=== PATIENT | male | born 1980 | race Caucasian/White ===

== ENCOUNTER 2017-04-23 05:21 | Inpatient (IN) | payer OTHER ==
[2017-04-23] MEDS ORDERED: LACTATED RINGER'S 1,000 ML IV* ×2 (06:00)
[2017-04-23] MEDS ORDERED: LIDOCAINE 2% (SDV) 5 ML INJ (07:00)
[2017-04-23] MEDS ORDERED: FENTAnyl 50 MCG/ML VIAL (07:07)
[2017-04-23] MEDS ORDERED: HYDROmorphONE 2 MG/ML SYG (07:11)
[2017-04-23] MEDS: BUPIVACAINE 0.25% (MPF) 30 ML INJ (08:40)
[2017-04-23] MEDS: GELATIN SIZE 100 SPONGE (08:41)
[2017-04-23] MEDS: THROMBIN 5000 UNIT VIAL (08:41)
[2017-04-23] MEDS: POLYMYXIN/BACITRACIN 1L IRRIG (08:41)
[2017-04-23] MEDS ORDERED: SUGAMMADEX SODIUM 200 MG/2 ML VIAL IV (08:42)
[2017-04-23] MEDS ORDERED: DEXAMETHASONE 4 MG/ML 1 ML INJ (09:16)
[2017-04-23] MEDS ORDERED: PROPOFOL 20 ML (09:16)
[2017-04-23] MEDS ORDERED: ROCURONIUM 50 MG INJ (09:16)
[2017-04-23] MEDS ORDERED: HYDROmorphONE (0.2 MG/ML) 10ML SYG IV ×3 (09:52→10:00)
[2017-04-23] MEDS: HYDROmorphONE (0.2 MG/ML) 10ML SYG IV (09:56)
[2017-04-23] MEDS ORDERED: DIAZEPAM 5 MG/ML SYG IM (10:00)
[2017-04-23] MEDS ORDERED: EPHEDrine SULFATE 50 MG/5 ML SYG IV (10:00)
[2017-04-23] MEDS ORDERED: ACETAMINOPHEN 325 MG TAB PO (10:00)
[2017-04-23] MEDS ORDERED: LABETALOL HCL 20MG INJ IV (10:00)
[2017-04-23] MEDS ORDERED: NALOXONE (0.4 MG/ML) INJ IV (10:00)
[2017-04-23] MEDS ORDERED: NACL 0.9% 3 ML SYG IV (10:00)
[2017-04-23] MEDS ORDERED: PROCHLORPERAZINE 10 MG TAB PO (10:00)
[2017-04-23] MEDS ORDERED: KETOROLAC 30 MG INJ IV (10:00)
[2017-04-23] MEDS ORDERED: hydrALAzine 20 MG INJ IV (10:00)
[2017-04-23] MEDS ORDERED: DIPHENHYDRAMINE 50 MG INJ IV (10:00)
[2017-04-23] MEDS ORDERED: ONDANSETRON 4 MG INJ IV (10:00)
[2017-04-23] MEDS ORDERED: MIDAZOLAM 1 MG/ML 2 ML INJ IV (10:00)
[2017-04-23] MEDS ORDERED: METOCLOPRAMIDE 10 MG INJ IV (10:00)
[2017-04-23] MEDS ORDERED: ZOLPIDEM 5 MG TAB PO (10:00)
[2017-04-23] MEDS ORDERED: DIPHENHYDRAMINE 50 MG CAP PO (10:00)
[2017-04-23] MEDS ORDERED: FENTAnyl 50 MCG/ML VIAL IV ×3 (10:00)
[2017-04-23] MEDS ORDERED: HYDROCODONE/APAP (5/325) TAB PO (10:00)
[2017-04-23] MEDS ORDERED: MEPERIDINE 25 MG INJ IV (10:00)
[2017-04-23] MEDS ORDERED: AL HYDROX/MG HYDROX/SIMETH 30 ML CUP PO (10:00)
[2017-04-23] MEDS: HYDROmorphONE 0.2 MG/ML PCA IV (10:18)
[2017-04-23] MEDS: DEXTROSE 5%-0.45% NACL 1,000 ML IV ×2 (12:32→23:40)
[2017-04-23] MEDS: CEPASTAT LOZENGE MT ×2 (12:32→20:42)
[2017-04-23] MEDS: CEFAZOLIN 1 GM/50 ML (PMX) 50 ML IVPB ×3 (12:32→23:40)
[2017-04-23] MEDS: CEFAZOLIN 2 GM/50 ML (PMX) 50 ML IVPB (12:33)
[2017-04-23] MEDS: ONDANSETRON 4 MG INJ IV (17:06)
[2017-04-23] MEDS: RANITIDINE 150 MG TAB PO (20:42)
[2017-04-23] MEDS: TRIMETHOBENZAMIDE 100 MG/ML VIAL IM (20:42)
[2017-04-24] MEDS: DIAZEPAM 5 MG TAB PO (01:50)
[2017-04-24] MEDS: BACLOFEN 10 MG TAB PO ×2 (02:44→11:40)
[2017-04-24] MEDS: HYDROmorphONE 0.2 MG/ML PCA IV (02:51)
[2017-04-24 04:54] LABS: HEMATOCRIT 38.8 % (42.0-52.0); HEMOGLOBIN 13.9 g/dl (14.0-18.0)
[2017-04-24 05:19] LABS: ALANINE AMINOTRANSFERASE 64 IU/L (13-69); ALBUMIN 3.7 g/dl (3.3-4.9); ALBUMIN/GLOBULIN RATIO 1.27; ALKALINE PHOSPHATASE 49 IU/L (42-121); ANION GAP 12 (8-16); ASPARTATE AMINO TRANSFERASE 39 IU/L (15-46); BILIRUBIN,INDIRECT 0.6 mg/dl (0-1.1); BILIRUBIN,TOTAL 0.6 mg/dl (0.2-1.3); BLOOD UREA NITROGEN 11 mg/dl (7-20); CALCIUM 9.5 mg/dl (8.4-10.2); CARBON DIOXIDE 27 mmol/L (21-31); CHLORIDE 103 mmol/L (97-110); CREATININE 0.75 mg/dl (0.61-1.24); GLUCOSE 146 mg/dl (70-220); POTASSIUM 4.4 mmol/L (3.5-5.1); SODIUM 138 mmol/L (135-144); TOTAL PROTEIN 6.6 g/dl (6.1-8.1)
[2017-04-24] MEDS: CEFAZOLIN 1 GM/50 ML (PMX) 50 ML IVPB (05:43)
[2017-04-24] MEDS: DEXTROSE 5%-0.45% NACL 1,000 ML IV ×2 (05:43→15:43)
[2017-04-24 05:46] LABS: HEPATITIS B SURFACE ANTIGEN NEGATIVE (NEGATIVE)
[2017-04-24 06:04] LABS: HEPATITIS C VIRAL ANTIBODY NEGATIVE (NEGATIVE)
[2017-04-24] MEDS ORDERED: BETHANECHOL 25 MG TAB PO (08:00)
[2017-04-24] MEDS: BETHANECHOL 25 MG TAB PO (08:08)
[2017-04-24] MEDS: HYDROCODONE/APAP (5/325) TAB PO ×3 (08:08→15:51)
[2017-04-24] MEDS: RANITIDINE 150 MG TAB PO (08:28)
[2017-04-24] MEDS: DOCUSATE SODIUM 100 MG CAP PO (08:28)
[2017-04-24] MEDS: ASCORBIC ACID 500 MG TAB PO (08:29)
[2017-04-24] MEDS: FERROUS SULFATE (EC) 325 MG TAB PO ×2 (08:29→12:22)
[2017-04-24 13:29] LABS: ADD UMIC YES; UR ASCORBIC ACID NEGATIVE (NEGATIVE); UR BILIRUBIN (Dip) NEGATIVE (NEGATIVE); UR BLOOD (Dip) 1+ mg/dL (NEGATIVE); UR CLARITY CLEAR (CLEAR); UR COLOR STRAW (YELLOW); UR GLUCOSE (Dip) NEGATIVE (NEGATIVE); UR KETONES (Dip) NEGATIVE (NEGATIVE); UR LEUKOCYTE ESTERASE (Dip) NEGATIVE Leu/ul (NEGATIVE); UR NITRITE (Dip) NEGATIVE (NEGATIVE); UR RBC 1 /HPF (0-5); UR SPECIFIC GRAVITY (Dip) 1.006 (1.003-1.030); UR TOTAL PROTEIN (Dip) NEGATIVE (NEGATIVE); UR UROBILINOGEN (Dip) NEGATIVE (NEGATIVE); UR WBC 0 /HPF (0-5)
== END 2017-04-24 18:38 | disposition home or self-care (01) | DRG 520 ==
LOC: REC 05:21 → MS1 10:33
PROC: 0SB20ZZ Excision of Lumbar Vertebral Disc, Open Approach (ICD-10-PCS; principal; 2017-04-23 07:00)
DX: M51.16 Intervertebral disc disorders with radiculopathy, lumbar region (principal); R06.6 Hiccough
CPT/HCPCS: 72020; 80053; 81001; 85014; 85018; 86803; 86850; 86900; 86901; 86920; 87086; 87340; 97116; 97162; 97530